=== PATIENT | male | born 1945 | race Caucasian/White ===

== ENCOUNTER 2021-10-10 11:11 | Emergency (ER) | payer MEDICARE, SELFPAY ==
--- NOTE | ~2021-10-10 | XR_ITS ---
EXAMINATION: XR chest 1V portable DATE: 10/10/2021 11:43 INDICATION: Fever TECHNIQUE: frontal view of the chest was obtained. COMPARISON: Chest radiograph dated 05/04/2017 FINDINGS: Again seen is a calcified nodule at the left costophrenic angle consistent with old granulomatous dis ease. No other airspace opacities, pulmonary edema, pleural effusion or pneumothorax. The cardiomedia stinal silhouette is normal. Moderate bilateral glenohumeral osteoarthritis. IMPRESSION: 1. No acute cardiopulmonary disease. Reviewed, dictated and finalized at location A.
[2021-10-10 11:18] VITALS: BP 164/84; PULSE 120; RESP 18; TEMP 36.9; O2SAT 98
[2021-10-10 11:43] LABS: Basophils Percent Auto 0.1 % (0.2-1.2); Hematocrit 45.4 % (42.0-52.0); Hemoglobin 15.4 g/dL (14.0-18.0); Immature Granulocyte Absolute 0.06 K/mm3 (0.00-0.031); Immature Granulocyte Percent A 0.7 % (0-0.5); Lymphocytes Absolute Auto 1.13 K/mm3 (0.9-3.2); Lymphocytes Percent Auto 12.4 % (18.3-44.2); Mean Corpuscular HGB Conc 33.9 g/dl (32-36); Mean Corpuscular Hemoglobin 30.7 pg (26-34); Mean Corpuscular Volume 90.6 fl (80-100); Mean Platelet Volume 10.1 fl (7.4-10.4); Monocytes Absolute Auto 1.1 K/mm3 (0.1-0.6); Neutrophils Absolute Auto 6.8 K/mm3 (1.3-6.7); Neutrophils Percent Auto 74.8 % (45.5-73.1); Platelet Count Result 183 k/mm3 (150-375); Red Blood Count 5.01 M/mm3 (4.6-6.20); Red Cell Distribution Width 12.3 % (11.5-14.5); White Blood Count 9.1 K/mm3 (4.5-10.0)
[2021-10-10 11:52] LABS: Alanine Aminotransferase 38 U/L (6-50); Albumin Level 4.6 g/dL (3.5-5.1); Alkaline Phosphatase 71 U/L (38-126); Anion Gap 11 mmol/L (8-16); Aspartate Amino Transferase 44 U/L (17-59); Bilirubin,Total 1.3 mg/dL (0.2-1.3); Blood Urea Nitrogen 21 mg/dL (9-20); Calcium 9.6 mg/dL (8.4-10.2); Carbon Dioxide 28 mmol/L (22-30); Chloride 100 mmol/L (98-107); Estimated CRCL calculation 50 ml/min; Estimated Glomerular Filt Rate 59; Glucose 121 mg/dL (65-110); Sodium 139 mmol/L (137-145)
[2021-10-10] MEDS: LACTATED RINGERS 1,000 ML 999 ML IV CONT (12:05)
[2021-10-10 12:20] LABS: Influenza A QL RT-PCR Negative (Negative); Influenza B QL RT-PCR Negative (Negative); SARS-CoV-2 RNA PCR Negative
--- NOTE | 2021-10-10 12:52 | ED.URI ---
HPI - URI/Sore Throat General Chief Complaint: Fever Stated Complaint: UPPER RESP C/O Time Seen by Provider: 10/10/21 11:38 History of Present Illness HPI Narrative: 76-year-old male presenting with fevers, feeling nasal congestion and headache, has been ongoing for the last few days, he did take a home test that was negative. Denies any dysuria, has a mild cough but states is not worse than usual, no focal numbness or weakness, no chest pain. States he has a history of sinus infections and sinus issues but has not been taking his Flonase that is prescribed. Related Data Allergies Allergy/AdvReac Type Severity Reaction Status Date / Time doxycycline Allergy Hives Verified 10/10/21 11:23 Sulfa (Sulfonamide Allergy Fever Verified 10/10/21 11:23 Antibiotics) Tetracyclines Allergy Hives Verified 10/10/21 11:23 Review of Systems Review of Systems: CONST: Fever HEENT: Nasal congestion C/V: No chest pain RESP: No difficulty breathing GI: No nausea or vomiting : No dysuria. M/S: No joint pain. SKIN: No rash. 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 EYES: EOMI, conjunctiva normal ENT: Hearing grossly intact, normal voice LUNGS: Nonlabored breathing. HEART: Tachycardic ABD: [Soft], [nontender to palpation] EXT: Normal range of motion SKIN: [No rashes or lesions.] NEURO: [Alert and oriented x 3. No gross focal sensory or strength deficits.] PSYCH: Normal affect Course Vital Signs Vital signs: Vital Signs Temperature 98.5 F 10/10/21 11:18 Pulse Rate 120 H 10/10/21 11:18 Respiratory Rate 18 10/10/21 11:18 Blood Pressure 164/84 H 10/10/21 11:18 Pulse Oximetry 98 07/24/22 11:18 Temperature 101.9 F H 10/10/21 13:21 Pulse Rate 84 10/10/21 13:21 Respiratory Rate 18 10/10/21 13:21 Blood Pressure 162/81 H 10/10/21 13:21 Pulse Oximetry 99 10/10/21 13:21 MDM - URI/Sore Throat MDM Narrative Medical decision making narrative: ED COURSE AND MEDICAL DECISION MAKING: This 76 year old patient presents with symptoms most suggestive of viral infection. VSS notable for tachycardia. Lungs are clear bilaterally without any respiratory distress or accessory muscle use. Patient is treated symptomatically with tylenol, toradol, IV fluids. Labs within acceptable limits, COVID test negative, chest x-ray normal. On reevaluation, HR and patient improved and he is discharged home in stable condition with expectant management. I have instructed him to use his Flonase daily, and given his history of sinus infections I will give him a prescription for [id number] sinusitis antibiotics if his symptoms do not improve after 10 days. Return precautions were provided. Procedures: Pulse oximetry interpretation - not hypoxic. Lab Data Result diagrams: 10/10/21 11:32 10/10/21 11:32 Labs: Lab Results 10/10/21 10/10/21 10/10/21 Range/Units 11:29 11:32 11:32 WBC 9.1 (4.5-10.0) K/mm3 RBC 5.01 (4.6-6.20) M/mm3 Hgb 15.4 (14.0-18.0) g/dL Hct 45.4 (42.0-52.0) % MCV 90.6 (80-100) fl MCH 30.7 (26-34) pg MCHC 33.9 (32-36) g/dl RDW 12.3 (11.5-14.5) % Plt Count 183 (150-375) k/mm3 MPV 10.1 (7.4-10.4) fl Immature Gran % (Auto) 0.7 H (0-0.5) % Neut % (Auto) 74.8 H (45.5-73.1) % Lymph % (Auto) 12.4 L (18.3-44.2) % Thayer % (Auto) 12.0 H (2.6-8.5) % Eos % (Auto) 0.0 (0-4.4) % Baso % (Aut
[2021-10-10 13:21] VITALS: BP 162/81; PULSE 84; RESP 18; TEMP 38.8; O2SAT 99
[2021-10-10] MEDS: KETOROLAC 15 MG/ML VIAL (*BKC) IV PUSH (13:21)
[2021-10-10 14:07] LABS: Add Urine Microscopic? NO; Appearance Urine Clear (Clear); Bilirubin Urine Negative (Negative); Blood Urine Negative (Negative); Color Urine Yellow (Yellow); Glucose Urine UA Negative (Negative); Ketones Urine Negative (Negative); Leukocyte Esterase Ur Negative LEU/UL (Negative); Nitrate Urine Negative (Negative); Protein Urine Negative (Negative); Specific Grav Ur >= 1.030 (1.001-1.035); Urobilinogen Urine 0.2 mg/dL (<2.0); pH Urine 5.5 (5.0-9.0)
--- NOTE | 2021-10-10 14:36 | PC.NURSE ---
pt noted to have fever 101.9 prior to dc order received for Tylenol 1g to be given iv
== END 2021-10-10 14:37 | disposition home or self-care (01) ==
PROVIDERS: Emergency Provider Emergency Medicine
DX: J01.90 Acute sinusitis, unspecified (principal); J45.909 Unspecified asthma, uncomplicated; Z20.822 Contact with and (suspected) exposure to COVID-19
CPT/HCPCS: 36415; 71045; 80053; 81003; 85025; 87502; 96361; 96365; 96375; 99284; C9803; J0131; J1885; J7120; U0003; U0005

== ENCOUNTER 2021-10-12 15:45 | Emergency (ER) | payer MEDICARE, SELFPAY ==
--- NOTE | ~2021-10-12 | XR_ITS ---
XR chest 1V portable 10/12/2021 17:25 Indication: Fever. Procedure: AP portable chest Comparison: 10/10/2021 Findings: Heart size normal. No focal air space disease, pulmonary edema, pleural effusion or suspect ed pneumothorax. No acute osseous abnormality. Impression: 1: No acute cardiopulmonary disease. Reviewed, dictated and finalized at location A. Impression: 1: No acute cardiopulmonary disease.
--- NOTE | 2021-10-12 15:47 | PC.NURSE ---
Pt was seen in the ED Monday and has had 2 negative covid test but not getting any better.
[2021-10-12 15:59] VITALS: BP 134/85; PULSE 111; RESP 20; TEMP 36.9; O2SAT 97
[2021-10-12 17:06] VITALS: BP 128/70; PULSE 89; RESP 18; TEMP 37.4; O2SAT 99
--- NOTE | 2021-10-12 17:21 | ED.FEVER ---
HPI - Fever General Chief Complaint: Fever <ROSIE Downing Last Filed: 10/12/21 19:11> Stated Complaint: Fever <ROSIE Downing Last Filed: 10/12/21 19:11> Time Seen by Provider: 10/12/21 17:07 <ROSIE Downing Last Filed: 10/12/21 19:11> Source: patient <ROSIE Downing Last Filed: 10/12/21 19:11> Mode of arrival: ambulatory <ROSIE Downing Last Filed: 10/12/21 19:11> Limitations: no limitations <ROSIE Downing Last Filed: 10/12/21 19:11> History of Present Illness HPI Narrative: This is a 76 year old male that presents to the ER for intermittent fevers noted over the last 10 days. Associated with malaise and myalgias. No other localizing symptoms. Reports he was started on CellCept last month by his Supervisor Wound. He was unsure if this was a possible side of effect of this medication so he stopped taking it two days ago. Denies cough, congestion, sore throat, abdominal pain or dysuria. <ROSIE Downing Last Filed: 10/12/21 19:11> Related Data Allergies/Adverse Reactions: Allergies Allergy/AdvReac Type Severity Reaction Status Date / Time doxycycline Allergy Hives Verified 10/12/21 17:07 Sulfa (Sulfonamide Allergy Fever Verified 10/12/21 17:07 Antibiotics) Tetracyclines Allergy Hives Verified 10/10/21 11:23 <ROSIE Downing Last Filed: 10/12/21 19:11> Review of Systems Review of Systems: CONSTITUTIONAL: Reports fever ENT: Denies congestion, sore throat RESPIRATORY: Denies cough GASTROINTESTINAL: Denies abdominal pain GENITOURINARY: Denies dysuria MUSCULOSKELETAL: Reports myalgia. 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 HEAD: Normocephalic, atraumatic. EYES: EOMI. ENT: Nares clear, no rhinorrhea or epistaxis. Mucous membranes moist. Oropharynx without tonsillar hypertrophy exudate or other lesions. Bilateral TMs pearly rolon non-bulging NECK: Supple. No adenopathy or masses. CHEST: Clear to auscultation. No respiratory distress. No wheezes rales or rhonchi HEART: Regular rate and rhythm. No murmur heard. Normal peripheral pulses. ABDOMEN: Soft, nontender, nondistended, normal active bowel sounds. EXTREMITIES: Normal range of motion. No edema. SKIN: Warm, dry, no rash. NEURO: No focal deficits. Alert and oriented x3. PSYCH: Normal mood and affect <Zuly Lewis PA-C - Last Filed: 10/12/21 19:11> Course EAR MACHINE OPERATOR/PA Physician Supervision For this patient encounter, I reviewed the EAR MACHINE OPERATOR or PA documentation, treatment plan, and medical decision making <Felix Harrington MD - Last Filed: 10/12/21 20:08> Consultations Consultation #1: Spoke with patient's restoration ecologist about workup who will follow up in clinic. <Zuly Lewis PA-C - Last Filed: 10/12/21 19:11> Date: 10/12/21 <Zuly Lewis PA-C - Last Filed: 10/12/21 19:11> Vital Signs Vital signs: Vital Signs Temperature 98.5 F 10/12/21 15:59 Pulse Rate 111 H 10/12/21 15:59 Respiratory Rate 20 10/12/21 15:59 Blood Pressure 134/85 10/12/21 15:59 Pulse Oximetry 97 10/12/21 15:59 Oxygen Delivery Room Air 10/12/21 15:59 Temperature 100.2 F H 10/12/21 19:25 Pulse Rate 80 10/12/21 19:35 Respir
[2021-10-12 17:43] LABS: Basophils Percent Auto 0.3 % (0.2-1.2); Hematocrit 40.9 % (42.0-52.0); Hemoglobin 13.7 g/dL (14.0-18.0); Immature Granulocyte Absolute 0.09 K/mm3 (0.00-0.031); Immature Granulocyte Percent A 1.5 % (0-0.5); Immature Platelet Fraction Pct 3.2 % (0.9-11.2); Lymphocytes Absolute Auto 0.69 K/mm3 (0.9-3.2); Lymphocytes Percent Auto 11.8 % (18.3-44.2); Mean Corpuscular HGB Conc 33.5 g/dl (32-36); Mean Corpuscular Hemoglobin 30.4 pg (26-34); Mean Corpuscular Volume 90.9 fl (80-100); Monocytes Absolute Auto 0.8 K/mm3 (0.1-0.6); Monocytes Percent Auto 12.8 % (2.6-8.5); Neutrophils Absolute Auto 4.3 K/mm3 (1.3-6.7); Neutrophils Percent Auto 73.6 % (45.5-73.1); Platelet Count Result 148 k/mm3 (150-375); Red Cell Distribution Width 12.3 % (11.5-14.5); White Blood Count 5.9 K/mm3 (4.5-10.0)
[2021-10-12 17:43] LABS: Appearance Urine Clear (Clear); Bilirubin Urine 1+ (Negative); Blood Urine Negative (Negative); Color Urine Yellow (Yellow); Glucose Urine UA Negative (Negative); Ketones Urine Trace mg/dL (Negative); Leukocyte Esterase Ur Negative LEU/UL (Negative); Nitrate Urine Negative (Negative); Protein Urine 2+ mg/dL (Negative); Specific Grav Ur 1.025 (1.001-1.035); pH Urine 6.5 (5.0-9.0)
[2021-10-12 17:50] LABS: Alanine Aminotransferase 53 U/L (6-50); Albumin Level 3.5 g/dL (3.5-5.1); Alkaline Phosphatase 78 U/L (38-126); Anion Gap 8 mmol/L (8-16); Aspartate Amino Transferase 58 U/L (17-59); Bilirubin,Total 1.1 mg/dL (0.2-1.3); Blood Urea Nitrogen 22 mg/dL (9-20); Calcium 8.5 mg/dL (8.4-10.2); Carbon Dioxide 24 mmol/L (22-30); Chloride 104 mmol/L (98-107); Estimated CRCL calculation 57 ml/min; Estimated Glomerular Filt Rate > 60; Glucose 107 mg/dL (65-110); Sodium 136 mmol/L (137-145)
[2021-10-12 17:56] LABS: Mucus Urine Heavy /lpf; RBC Urine 0-2 /hpf (0-2); Squamous Epithelial Cell Urine Rare /hpf (Few); WBC Urine 0-3 /hpf
[2021-10-12 17:58] LABS: Add Urine Microscopic? YES
[2021-10-12 18:09] LABS: CRP 6.1 mg/dL (<1.0); Lipase 139 U/L (23-300)
[2021-10-12 18:22] LABS: Monoscreen Negative (Negative); Negative Monotest Control Negative (Negative); Positive Monotest Control Positive (Positive)
[2021-10-12] MEDS: ACETAMINOPHEN 500 MG TABLET 1000 MG PO (18:23)
[2021-10-12 18:28] LABS: Erythrocyte Sedimentation Rate 17 mm/hr (0-20)
[2021-10-12 18:59] VITALS: BP 126/79; PULSE 89; RESP 14; O2SAT 100
[2021-10-12 19:25] VITALS: TEMP 37.9
[2021-10-12 19:35] VITALS: BP 117/69; PULSE 80; RESP 18; O2SAT 97
== END 2021-10-12 19:37 | disposition home or self-care (01) ==
PROVIDERS: Physician Assistant; Emergency Provider Emergency Medicine
DX: R50.9 Fever, unspecified (principal); J45.909 Unspecified asthma, uncomplicated; E78.5 Hyperlipidemia, unspecified
CPT/HCPCS: 36415; 71045; 80053; 81001; 83690; 85025; 85055; 85652; 86140; 86308; 87040; 99283; A9270

== ENCOUNTER 2023-06-17 07:51 | Emergency (ER) | payer MEDICARE, SELFPAY ==
--- NOTE | ~2023-06-17 | CT_ITS ---
EXAMINATION: CT abdomen pelvis wo con DATE: 06/17/2023 09:56 INDICATION: Hematuria. TECHNIQUE: Computed tomography (CT) of the abdomen and pelvis was performed without intravenous contr ast. Automated exposure control and iterative reconstruction technique were employed. Exam dose: 278 .79 mGy-cm total exam DLP. COMPARISON: None. FINDINGS: There is minimal discoid atelectasis or more likely scarring at the lung bases. No infiltra te or consolidation at the lung bases. Normal heart size. No pericardial or pleural effusion. Probable small hepatic dome cyst with a few hepatic and splenic calcified granulomas, consistent with old granulomatous disease. The gallbladder, bile ducts and pancreatic duct appear unremarkable. No splenomegaly. No pancreatic m ass lesion or calcification or pancreatic ductal dilatation. Prominent duodenal diverticulum. Normal morphology of the adrenal glands. No renal mass lesion is evident on this limited noncontrast examination. No urinary tract calculus or hydroureteronephrosis is detected the urinary bladder is unremarkable. Mild prostate enlargement. Bi lateral fat-containing inguinal hernias; left inguinal hernia contains a small portion of the left co sudha, without obstruction.. Small fat-containing umbilical hernia Normal caliber of the abdominal aorta. No intraperitoneal or retroperitoneal or pelvic mass lesion or adenopathy or ascites is detected. Small sliding hiatal hernia. Minimal sigmoid and descending colon diverticulosis; no CT evidence of d iverticulitis. No evidence of appendicitis. No bowel obstruction, bowel wall thickening, pneumatosis or intraperiton eal free air. Advanced healing of the proximal left 11th rib fracture. Ununited lateral left eighth and ninth rib fractures. Severe degenerative disease at L1-2 and particularly at L2-3 and L3-4. IMPRESSION: Bilateral inguinal hernias, containing a small portion of the left colon on the left Prostate enlargement Small sliding hiatal hernia. Duodenal diverticulum Mild colonic diverticulosis Small hepatic dome probable cyst Prostate enlargement Reviewed, dictated and finalized at Location [facility]. Reviewed, dictated and finalized at location A.
[2023-06-17 08:07] VITALS: BP 145/93; PULSE 104; RESP 16; TEMP 36.4; O2SAT 97
[2023-06-17 09:04] LABS: Appearance Urine Cloudy (Clear); Bacteria Urine None Seen /hpf; Bilirubin Urine Negative (Negative); Blood Urine 3+ (Negative); Color Urine Yellow (Yellow); Glucose Urine UA Negative (Negative); Ketones Urine 2+ mg/dL (Negative); Leukocyte Esterase Ur 3+ LEU/UL (Negative); Nitrate Urine Negative (Negative); Non Pathogenic Casts 0-2; Protein Urine 2+ mg/dL (Negative); RBC Urine >100 /hpf (0-2); Squamous Epithelial Cell Urine None Seen /hpf (Few); WBC Urine >100 /hpf (0-3); pH Urine 7.5 (5.0-9.0)
[2023-06-17 09:21] LABS: Add Urine Microscopic? YES
[2023-06-17 09:37] VITALS: O2SAT 100
--- NOTE | 2023-06-17 09:40 | ED.MALEGU ---
HPI - Male Genitourinary General Chief complaint: Urogenital-Male <Trisha Beal PA-C - Last Filed: 06/17/23 10:59> Stated complaint: blood in urine <Trisha Beal PA-C - Last Filed: 06/17/23 10:59> Time Seen by Provider: 06/17/23 09:31 <Trisha Beal PA-C - Last Filed: 06/17/23 10:59> History of Present Illness HPI Narrative: 77-year-old male with a history of hyperlipidemia and asthma presents to the emergency department for gross hematuria Since last night and dysuria for 2 days.. Patient is reporting discomfort when he urinates he describes it as burning sensation. States when he went to bathroom last night he noticed a pink tinge in urine which prompted him to come to the ED today. He denies testicular pain, abdominal pain, flank pain, nausea or vomiting, fever, diarrhea. Denies dilan hematuria. He is endorsing some purulence around his urethral meatus, however politely declines STD testing. States he had a similar episode he was 20 and was diagnosed with urethritis. He is not anticoagulated. <Trisha Beal PA-C - Last Filed: 06/17/23 10:59> Related Data Allergies/Adverse reactions: Allergies Allergy/AdvReac Type Severity Reaction Status Date / Time doxycycline Allergy Hives Verified 06/17/23 08:09 Sulfa (Sulfonamide Allergy Fever Verified 06/17/23 08:09 Antibiotics) Tetracyclines Allergy Hives Verified 06/17/23 08:09 <Trisha Beal PA-C - Last Filed: 06/17/23 10:59> Review of Systems Review of Systems: CONSTITUTIONAL: Denies fever, chills, or sweats. EYES: Denies visual changes, redness, or discharge. ENT: Denies rhinorrhea, congestion, sore throat, or otalgia. CARDIOVASCULAR: Denies chest pain, palpitations, or edema. RESPIRATORY: Denies cough or dyspnea. GASTROINTESTINAL: Denies abdominal pain, nausea, vomiting, or diarrhea. GENITOURINARY: See HPI SKIN: Denies rash or itching. MUSCULOSKELETAL: Denies back pain, joint pain, or myalgia. NEUROLOGIC: Denies headache, numbness, or weakness. PSYCHIATRIC: Denies anxiety or depression. 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 HEAD: Normocephalic, atraumatic. EYES: PERRLA and EOMI. ENT: Nares clear, no rhinorrhea or epistaxis. Mucous membranes moist. NECK: Supple. CHEST: Clear to auscultation. No respiratory distress. HEART: Regular rate and rhythm. No murmur heard. Normal peripheral pulses. ABDOMEN: Soft, nontender, nondistended, normal active bowel sounds. no rebound, guarding or rigidity. No CVA tenderness. EXTREMITIES: Normal range of motion. No edema. SKIN: Warm, dry, no rash. NEURO: No focal deficits. Alert and oriented x3 <Trisha Beal PA-C - Last Filed: 06/17/23 10:59> Course CLINICAL DOCUMENTATION CONSULTANT/PA Physician Supervision I agree with midlevel documentation; I performed the medical decision making component of this evaluation. <Janet Handy MD - Last Filed: 06/17/23 16:42> Vital Signs Vital signs: Vital Signs Temperature 97.5 F L 06/17/23 08:07 Pulse Rate 104 H 06/17/23 08:07 Respiratory Rate 16 06/17/23 08:07 Blood Pressure 145/93 H 06/17/23 08:07 Pulse Oximetry 97 06/17/23 08:07 Oxygen Delivery Room Air 06/17/23 08:07 Temperature 97.9 F 06/17/23 11:00 Pulse Rate 70 03/30/24 11:00 Respiratory Rate 16 06/17/23 11:00 Blood
[2023-06-17 10:21] VITALS: BP 167/84; PULSE 72; RESP 16; TEMP 36.6; O2SAT 100
[2023-06-17 10:24] LABS: Basophils Percent Auto 0.2 % (0.2-1.2); Eosinophils Percent Auto 0.1 % (0-4.4); Hematocrit 44.3 % (42.0-52.0); Hemoglobin 15.1 g/dL (14.0-18.0); Immature Granulocyte Absolute 0.03 K/mm3 (0.00-0.031); Immature Granulocyte Percent A 0.3 % (0-0.5); Lymphocytes Absolute Auto 0.88 K/mm3 (0.9-3.2); Lymphocytes Percent Auto 9.1 % (18.3-44.2); Mean Corpuscular HGB Conc 34.1 g/dl (32-36); Mean Corpuscular Hemoglobin 31.4 pg (26-34); Mean Corpuscular Volume 92.1 fl (80-100); Mean Platelet Volume 10.7 fl (7.4-10.4); Monocytes Absolute Auto 0.8 K/mm3 (0.1-0.6); Monocytes Percent Auto 8.1 % (2.6-8.5); Neutrophils Absolute Auto 7.9 K/mm3 (1.3-6.7); Neutrophils Percent Auto 82.2 % (45.5-73.1); Platelet Count Result 149 k/mm3 (150-375); Red Blood Count 4.81 M/mm3 (4.6-6.20); Red Cell Distribution Width 12.3 % (11.5-14.5); White Blood Count 9.6 K/mm3 (4.5-10.0)
[2023-06-17] MEDS: SODIUM CHLORIDE 0.9% IV 1,000 ML 999 ML IV CONT (10:29)
[2023-06-17 10:33] LABS: Anion Gap 7 mmol/L (4-12); Blood Urea Nitrogen 18 mg/dL (9-20); Calcium 9.6 mg/dL (8.4-10.2); Carbon Dioxide 27 mmol/L (22-30); Chloride 105 mmol/L (98-107); Estimated CRCL calculation 52 ml/min; Estimated Glomerular Filt Rate > 60; Glucose 117 mg/dL (65-110); Potassium 4.6 mmol/L (3.4-5.0); Sodium 139 mmol/L (137-145)
[2023-06-17 11:00] VITALS: BP 146/80; PULSE 70; RESP 16; TEMP 36.6; O2SAT 99
[2023-06-17] MEDS: CIPROFLOXACIN 500 MG TAB PO (11:04)
== END 2023-06-17 11:24 | disposition home or self-care (01) ==
PROVIDERS: Emergency Medicine; Emergency Provider Physician Assistant
DX: R82.90 Unspecified abnormal findings in urine (principal); R31.0 Gross hematuria; K76.9 Liver disease, unspecified; K40.20 Bilateral inguinal hernia, without obstruction or gangrene, not specified as recurrent; J45.909 Unspecified asthma, uncomplicated; E78.5 Hyperlipidemia, unspecified
CPT/HCPCS: 36415; 74176; 80048; 81001; 85025; 87086; 87181; 96360; 99284; A9270; J7030

== ENCOUNTER 2025-02-28 09:14 | Emergency (ER) | payer MEDICARE, SELFPAY ==
[2025-02-28 09:29] VITALS: BP 144/66; PULSE 89; RESP 18; TEMP 36.6; O2SAT 98
--- NOTE | 2025-02-28 09:29 | ED.GENADULT ---
HPI - General Adult General Chief complaint: Urogenital-Male Stated complaint: UTI symptoms Time Seen by Provider: 02/28/25 09:28 History of Present Illness HPI narrative: 79-year-old male presents emergency department with couple days of increased urinary frequency urgency. Denies any fevers chills no back pain no abdominal pain. No lightheadedness no chest pain or shortness of breath. Patient states he had a similar episode a couple months ago and was told he had UTI that cleared up within 24 hours and given ciprofloxacin patient denies any hematuria, denies any B symptoms or unintended weight loss. 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 HEAD: Normal with no signs of head trauma. EYES: EOMI, conjunctiva normal ENT: Hearing grossly intact LUNGS: Nonlabored breathing. HEART: Regular rate and rhythm ABD: Soft, nontender to palpation EXT: Normal range of motion SKIN: No rashes or lesions. NEURO: Alert. No gross focal sensory or strength deficits. PSYCH: Normal affect Course Vital Signs Vital signs: Vital Signs Temperature 36.6 C 02/28/25 09:29 Pulse Rate 89 02/28/25 09:29 Respiratory Rate 18 02/28/25 09:29 Blood Pressure 144/66 H 02/28/25 09:29 Pulse Oximetry 98 02/28/25 09:29 Oxygen Delivery Room Air 02/28/25 09:29 Temperature 36.6 C 02/28/25 09:29 Pulse Rate 89 02/28/25 09:29 Respiratory Rate 18 02/28/25 09:29 Blood Pressure 144/66 H 02/28/25 09:29 Pulse Oximetry 98 02/28/25 09:29 Oxygen Delivery Room Air 02/28/25 09:29 [facility] Differential Diagnosis Differential Diagnosis: 79-year-old male presents with urinary symptoms. His son the differentials complicated UTI, is otherwise well appearing with a soft benign abdominal exam normal vitals I do not have any suspicion for pyelonephritis or more sinister etiology at this juncture. Will obtain a urinalysis she consistent with complicated cystitis will send urine culture she had empirically with ciprofloxacin. Plan for evaluation for treatment. Results and re-evaluation UA shows 3+ leukocyte esterase, wbc's and bacteria. Urine culture will be sent but in the meantime I will start him on empiric treatment for a complicated UTI. I will start him on a 10 day course of ciprofloxacin he is given the 1st dose here otherwise instructed follow up with primary care doctor coming days return sooner for fever chills abdominal back pain or any new or concerning symptoms Medical Records I have reviewed the following patient records and this information was taken into consideration when formulating the assessment and plan.: previous labs and previous ER visits Lab Data [facility] Lab Attestation statement: I personally reviewed the patient's lab results. Labs: Lab Results 02/28/25 Range/Units 09:59 Urine Color Dark yellow (Yellow) Urine Appearance Turbid H (Clear) Urine pH 6.5 (5.0-9.0) Ur Specific [place] 1.021 (1.001-1.035) Urine Protein 3+ H (Negative) mg/dL Urine Glucose (UA) Negative (Negative) mg/dL Urine Ketones 1+ H (Negative) mg/dL Ur Blood (Man) 2+ H (Negative) Urine Nitrate Negative (Negative) Urine Bilirubin Negative (Negative) Urine Urobilinogen 1.0 (<2.0) mg/dL Leukocyte Esterase Rfl 3+ H (Negative) SHEILA/UL Urine RBC >100 H (0-2) /hpf Urine WBC >100 H (0-3) /hpf Ur Squamous Epith Cells None seen (Few) /hpf Urine Bacteria None seen /hpf Urine Casts 3-5 Discharge Plan Discharge Clinical Impression: Urinary tract infection Patient Disposition: Home Condition: Stable Instructions: Antibiotic Form, Urinary Tract Infection in Men (ED) Patient Language: Russian Prescriptions: New ciprofloxacin HCl 500 mg tablet 500 mg PO Q12H 10 Days Qty: 20 0RF No Action loratadine [Claritin] 10 mg tablet 10 mg PO DAILY Qty: 30 0RF amoxicillin-pot clavulanate 875-125 mg tablet 1 tablet PO Q12H Qty: 14 0RF ciprofloxacin HCl 500 mg tablet 500 mg PO Q12H Qty: 14 0RF Follow-up/Referrals: PHYSICIAN NOT ON STAFF,NONSTAFF [Primary Care Provider] Time of Disposition: 10:16
[2025-02-28 10:10] LABS: Add Urine Microscopic? YES; Appearance Urine Turbid (Clear); Glucose Urine UA Negative (Negative); Leukocyte Esterase Ur 3+ LEU/UL (Negative); Nitrate Urine Negative (Negative); Specific Grav Ur 1.021 (1.001-1.035)
[2025-02-28] MEDS: CIPROFLOXACIN 500 MG TAB PO (10:35)
== END 2025-02-28 10:39 | disposition home or self-care (01) ==
PROVIDERS: Emergency Provider Emergency Medicine
DX: N39.0 Urinary tract infection, site not specified (principal); E78.5 Hyperlipidemia, unspecified; J45.909 Unspecified asthma, uncomplicated
CPT/HCPCS: 81001; 87086; 99283; A9270